=== PATIENT | male | born 1940 | race Caucasian/White ===

== ENCOUNTER 2018-05-18 22:57 | Emergency (ER) | payer MEDICARE, BC ==
[~2018-05-18] VITALS: Ht 172.7 cm; Wt 85.3 kg
[2018-05-18 23:30] VITALS: BP 149/68
[2018-05-18] MEDS ORDERED: Sodium Chloride 500ML 500 ML IV ONE (23:38)
[2018-05-19] MEDS ORDERED: Metoclopramide 10mg/2ml Inj IVP ONE
[2018-05-19] MEDS ORDERED: Meclizine 25mg tab ORAL ONE
[2018-05-19 00:07] LABS: BASOPHILS % (AUTO) 0.8 % (0.0-2.0); EOSINOPHILS % (AUTO) 1.6 % (0.0-3.0); HEMATOCRIT 42.6 % (42.0-52.0); HEMOGLOBIN 14.3 G/DL (14.2-18.0); MEAN CORPUSCULAR VOLUME 95 FL (80-99); MONOCYTES % (AUTO) 7.3 % (1.0-10.0); NEUTROPHILS % (AUTO) 60.3 % (45.0-75.0); PLATELET COUNT 150 K/UL (150-450); RED BLOOD COUNT 4.47 M/UL (4.70-6.10); RED CELL DISTRIBUTION WIDTH 10.8 % (11.6-14.8); WHITE BLOOD COUNT 7.8 K/UL (4.8-10.8)
[2018-05-19 00:16] LABS: ANION GAP 9 mmol/L (5-15); BLOOD UREA NITROGEN 30 mg/dL (7-18); CALCIUM 9.4 MG/DL (8.5-10.1); CARBON DIOXIDE 25 MMOL/L (21-32); CHLORIDE 106 MMOL/L (98-107); CREATININE 1.6 MG/DL (0.55-1.30); POTASSIUM 4.4 MMOL/L (3.5-5.1); SODIUM 140 MMOL/L (136-145)
[2018-05-19 00:23] VITALS: BP 144/64
[2018-05-19 00:30] LABS: ALANINE AMINOTRANSFERASE 31 U/L (12-78); ALBUMIN/GLOBULIN RATIO 1.1 (1.0-2.7); ALKALINE PHOSPHATASE 63 U/L (46-116); ASPARTATE AMINO TRANSFERASE 16 U/L (15-37); BILIRUBIN,TOTAL 0.5 MG/DL (0.2-1.0); CKMB 1.3 NG/ML (0.0-3.6); CREATINE KINASE 61 U/L (26-308)
[2018-05-19] MEDS ORDERED: MECLIZINE HCL25 MG ORAL (00:48)
[2018-05-19 00:52] VITALS: BP 137/57
[2018-05-19 01:08] VITALS: BP 137/57
--- NOTE | 2018-05-19 01:38 | Emergency Room Report ---
History of Present Illness General Chief Complaint: Generalized Weakness Source: Patient, Family Member Present Illness HPI 78-year-old male presents ED for evaluation. Family at bedside states that patient has been experiencing dizziness and left ear pain 1 day. Describes room spinning sensation. Worse with sudden head movement. Pain and ear is dull , 5 out of 10, nonradiating. Notes nausea, denies vomiting. Denies headache. Denies neck stiffness. Denies chest pain or shortness of breath. No other aggravating relieving factors. Denies any other associated symptoms Allergies: Coded Allergies: AMOXICILLIN (Verified Allergy, Unknown, 05/18/18) Patient History Past Medical History: HTN, CAD Past Surgical History: none Pertinent Family History: none Social History: Denies: smoking, alcohol use, drug use Immunizations: UTD Reviewed Nursing Documentation: PMH: Agreed; PSxH: Agreed Nursing Documentation-PMH Hx Cardiac Problems: Yes - High Cholesterol, Stent Hx Hypertension: Yes Review of Systems All Other Systems: negative except mentioned in HPI Physical Exam Vital Signs Date Time Temp Pulse Resp B/P (MAP) Pulse Ox O2 Delivery O2 Flow Rate FiO2 05/18/18 23:21 98.0 68 17 149/68 100 Room Air 98.1 Sp02 EP Interpretation: reviewed, normal General Appearance: no apparent distress, alert, GCS 15, non-toxic Head: normocephalic, atraumatic Eyes: bilateral eye normal inspection, bilateral eye PERRL ENT: hearing grossly normal, normal pharynx, no angioedema, normal voice, other - L TM cerumen impaction Neck: full range of motion, supple/symm/no masses Respiratory: chest non-tender, lungs clear, normal breath sounds, speaking full sentences Cardiovascular #1: regular rate, rhythm, no edema Cardiovascular #2: 2+ carotid (R), 2+ carotid (L), 2+ radial (R), 2+ radial (L) , 2+ dorsalis pedis (R), 2+ dorsalis pedis (L) Gastrointestinal: normal bowel sounds, non tender, soft, non-distended, no guarding, no rebound Rectal: deferred Genitourinary: normal inspection, no CVA tenderness Musculoskeletal: back normal, gait/station normal, normal range of motion, non- tender Neurologic: alert, oriented x3, responsive, it applications developer III-XII nml as tested, motor strength/tone normal, sensory intact, speech normal Psychiatric: judgement/insight normal, memory normal, mood/affect normal, no suicidal/homicidal ideation Reflexes: 3+ bicep (R), 3+ bicep (L), 3+ tricep (R), 3+ tricep (L), 3+ knee (R) , 3+ knee (L) Skin: normal color, no rash, warm/dry, well hydrated Lymphatic: no adenopathy Medical Decision Making Diagnostic Impression: Primary Impression: Vertigo Additional Impression: Renal insufficiency ER Course Hospital Course 78-year-old male presents ED complaining of dizziness Differential diagnoses include: NH/unstable angina, SVT, A. fib, V. tach, vertigo Clinical course Patient placed on stretcher. on manager monitoring. After initial history and physical I ordered labs, EKG, IVFs, CXR, meclizine, reglan labs reviewed- no leukocytosis, hemoglobin/hematocrit stable, cr 1.6, trop 0.017 EKG - NSR, no acute ischemic changes interpreted by me Upon reassessment patient states his symptoms have improved. Clinical findings consistent with vertigo. During ED course patient did have episodes of bradycardia into the 40s Discussed findings with patient and family. His symptoms are consistent with benign positional vertigo likely due to pathology in the left ear. However given the renal insufficiency and bradycardia I did recommend option for admission for observation Patient and family declined stating that patient feels better. Patient wishes to see his PMD as outpatient I. I feel this is a highly complex case requiring extensive working including EKG/Rhythm strip, Xray/CT/US, Blood/urine lab work, repeat exams while in ED, and administration of strong opiates/narcotics for pain control, admission to hospital or close patient follow up. Diagnosis - vertigo, renal insufficiency stable and discharged to home with prescription for meclizine. Followup with PMD. Return to ED if symptoms recur or worsen Labs Test 05/18/18 23:40 White Blood Count 7.8 K/UL (4.8-10.8) Red Blood Count 4.47 M/UL (4.70-6.10) Hemoglobin 14.3 G/DL (14.2-18.0) Hematocrit 42.6 % (42.0-52.0) Mean Corpuscular Volume 95 FL (80-99) Mean Corpuscular Hemoglobin 32.0 PG (27.0-31.0) Mean Corpuscular Hemoglobin Concent 33.6 G/DL (32.0-36.0) Red Cell Distribution Width 10.8 % (11.6-14.8) Platelet Count 150 K/UL (150-450) Mean Platelet Volume 6.6 FL (6.5-10.1) Neutrophils (%) (Auto) 60.3 % (45.0-75.0) Lymphocytes (%) (Auto) 30.0 % (20.0-45.0) Monocytes (%) (Auto) 7.3 % (1.0-10.0) Eosinophils (%) (Auto) 1.6 % (0.0-3.0) Basophils (%) (Auto) 0.8 % (0.0-2.0) Sodium Level 140 MMOL/L (136-145) Potassium Level 4.4 MMOL/L (3.5-5.1) Chloride Level 106 MMOL/L (98-107) Carbon Dioxide Level 25 MMOL/L (21-32) Anion Gap 9 mmol/L (5-15) Blood Urea Nitrogen 30 mg/dL (7-18) Creatinine 1.6 MG/DL (0.55-1.30) Estimat Glomerular Filtration Rate mL/min (>60) Glucose Level 156 MG/DL (74-106) Calcium Level 9.4 MG/DL (8.5-10.1) Total Bilirubin 0.5 MG/DL (0.2-1.0) Aspartate Amino Transf (AST/SGOT) 16 U/L (15-37) Alanine Aminotransferase (ALT/SGPT) 31 U/L (12-78) Alkaline Phosphatase 63 U/L (46-116) Total Creatine Kinase 61 U/L (26-308) Creatine Kinase MB 1.3 NG/ML (0.0-3.6) Creatine Kinase MB Relative Index 2.1 Troponin I 0.017 ng/mL (0.000-0.056) Total Protein 7.5 G/DL (6.4-8.2) Albumin 4.0 G/DL (3.4-5.0) Globulin 3.5 g/dL Albumin/Globulin Ratio 1.1 (1.0-2.7) EKG Diagnostic Results Rate: normal Rhythm: NSR ST Segments: no acute changes ASA given to the pt in ED: No Rhythm Strip Diag. Results EP Interpretation: yes Rhythm: NSR, no PVC's, no ectopy Last Vital Signs Date Time Temp Pulse Resp B/P (MAP) Pulse Ox O2 Delivery O2 Flow Rate FiO2 05/19/18 01:08 98.1 47 16 137/57 99 Room Air 98.1 Status: improved Disposition: HOME, SELF-CARE Condition: Stable Scripts Meclizine Hcl* (MECLIZINE*) 25 Mg Tablet 25 MG ORAL THREE TIMES A DAY, #20 TAB Prov: Julio Chadwick MD 05/19/18 Referrals: NON PHYSICIAN (PCP) MELODIE AMADOR Patient Instructions: Vertigo, [id number] Julio Chadwick MD May 19, 2018 01:38
--- NOTE | 2018-05-19 13:41 | Cardiology Report ---
APPROVED REPORT EKG Measurement Heart [id number] Sinus rhythm with 1st degree AV block Consider infero-lateral ischemia. Abnormal ECG
== END 2018-05-19 01:10 | disposition home or self-care (01) ==
LOC: EMR 05-19 00:20
DX: R42 Dizziness and giddiness (principal); N28.9 Disorder of kidney and ureter, unspecified; I10 Essential (primary) hypertension; H61.22 Impacted cerumen, left ear; I25.10 Atherosclerotic heart disease of native coronary artery without angina pectoris; Z88.0 Allergy status to penicillin
CPT/HCPCS: 36415; 80053; 82550; 82553; 84484; 85025; 93005; 96374; 99284; J2765; J7040